=== PATIENT | male | born 1990 ===

== ENCOUNTER 2021-06-29 08:11 | Emergency (ER) | payer MEDICAID ==
[~2021-06-29] VITALS: Ht 167.6 cm; Wt 90.7 kg
[2021-06-29] MEDS ORDERED: PRED20TA2 PO (08:24)
[2021-06-29] MEDS ORDERED: IBUP800T27 PO (08:24)
[2021-06-29 08:27] VITALS: BP 139/91
== END 2021-06-29 08:54 | disposition home or self-care (01) ==
LOC: ER 08:11
DX: G56.03 Carpal tunnel syndrome, bilateral upper limbs (principal); F17.210 Nicotine dependence, cigarettes, uncomplicated; Z79.1 Long term (current) use of non-steroidal anti-inflammatories (NSAID); Z79.899 Other long term (current) drug therapy